=== PATIENT | male | born 1990 | race American Indian/Alaskan Native ===

== ENCOUNTER 2016-09-19 11:53 | Emergency (ER) | payer OTHER ==
[2016-09-19 12:04] VITALS: RESP 18; TEMP 98
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
[2016-09-19 13:39] VITALS: BP 120/68; PULSE 67
[2016-09-19 18:09] VITALS: O2SAT 100
== END 2016-09-19 13:39 | disposition home or self-care (01) ==
LOC: C.ER 11:53 → MERGE 11:53 → C.ER 13:39
DX: H20.9 Unspecified iridocyclitis (principal); S05.8X2D Other injuries of left eye and orbit, subsequent encounter; Y04.2XXD Assault by strike against or bumped into by another person, subsequent encounter